=== PATIENT | female | born 1970 | race Caucasian/White ===

== ENCOUNTER 2024-11-04 09:17 | Outpatient (AMB) | payer OTHER, SELFPAY ==
--- NOTE | 2024-11-04 09:24 | A.OFFVIS_ITS ---
Vital Signs 11/04/24 09:28 Height 5 ft 9.13 in Weight 243 lb 6.245 oz BMI 35.8 BP 118/86 Blood Pressure Location Lt brachial Position Sitting Pulse 69 Pulse Source Pulse Oximeter Pulse Oximetry (%) 98 Oxygen Delivery Method Room Air Intake Visit Reasons: OA Intake Note: Patient presents today for osteoarthritis follow up. Accompanied by: Self / Same As Patient Allergies No Known Allergies Allergy (Verified 11/04/24 09:29) HPI HPI OA: Details: She had facial and extremity skin infections on Remicade and it was discontinued. He had a skin biopsy of 1 of the lesions that confirmed an infection. Her eczema is exacerbated. Initially, Remicade improved her hand symptoms but then she reports that later on in the treatment she was not having same benefit. Stiffness is all day in hands. She continues to have pain in hand joints. Pain in feet, especially in the morning. She has heel pain and pain in the front of her foot. She has difficulty walking in the morning. Improves with time. Hydradenitis suppurativa is active in bilateral axilla, underneath the breasts, and groin region. She continues to see Dermatology PROP SETTER Brian. She is having pain right lateral hip. In the past she has had right trochanteric bursa cortisone injection, which lasted at least 3 months. [facility] Medical History (Updated 11/04/24 @ 21:59 by Yazan Davis MD) Osteoarthritis Review of Systems Const All systems reviewed & are unremarkable except as noted in HPI and below Physical Exam Vital Signs: Last Vital Signs Pulse 69 11/04/24 09:28 BP 118/86 11/04/24 09:28 Pulse Ox 98 11/04/24 09:28 Oxygen Delivery Method Room Air 11/04/24 09:28 BMI result Body Mass Index 35.8 Const Other: General: Comfortable CVS: RRR Respiratory: clear to auscultation bilaterally. Good respiratory effort Skin: No lesions seen MSK: Tender to palpate PIP bilaterally. No synovitis. Normal range of motion of upper extremity and lower extremity. Right trochanteric bursa tenderness found. No tenderness at the attachment of plantar aponeurosis at the heel. No MTP tenderness. Results Reviewed Results Reviewed: Labs and [facility] 2021 to 2023. Assessment & Plan Assessment & Plan (1) Inflammatory arthritis: Comment: Associated with hidradenitis suppurativa affecting hands and feet. She continues to experience hand stiffness and pain. No active synovitis on exam. I am ordering labs and x-rays for further investigation of current hand and foot pain. If workup is unremarkable and shows no new radiographic changes associated with inflammatory arthritis, she will need MRI of her right hand to evaluate for subclinical inflammatory arthritis as it will car changer. 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 Can consider next steps in management with Bimekizumab to treat both HS and inflammatory arthritis. Rheumatology history: History of HS for over 20 years. She developed hand, fee t, knee pain, stiffness all day, dactylitis appearance of toes without pain while on Humira (12/2020-02/2021) for HS. Cosentyx 02/2021 improved pain and swelling by 80% but did not have any effect on HS. High dose prednisone prescribed by Dermatology to try to control HS caused agitation, tremors and uncontrolled anxiety. She failed acitretin and Humira for HS. She had enthesitis on exam with medial epicondylitis and bilateral trochanteric bursitis without synovitis. 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 Meloxicam was ineffective. Ibuprofen 600-800 daily or b.i.d. was beneficial. Remicade 09/2023 started to help control polyarthralgia affecting hands and feet and HS with benefit at 7 mg per kg every 6 weeks but was discontinued later due to development of skin infections affecting her face and extremities. HLA B27, anti CCP antibody and rheumatoid factor negative. 05/15/2021 elevated ESR 33 mm/hr and CRP 0.8 mg/dL while on Cosentyx. Code(s): M19.90 - Unspecified osteoarthritis, unspecified site Category: Medical Plan: X-ray hands and feet ordered Labs ordered [facility] reviewed I will consider MRI right hand with and without contrast for further evaluation of subclinical inflammatory arthritis as it will car changer with addition of DMARD therapy Return to clinic in 1-2 months (2) Hidradenitis suppurativa: Comment: Uncontrolled Code(s): L73.2 - Hidradenitis suppurativa Category: Medical Plan: Follows with Dermatology See above (3) Bilateral hand pain: Code(s): M79.641 - Pain in right hand; M79.642 - Pain in left hand Category: Medical Plan: See above (4) Foot pain, bilateral: Comment: She is experiencing heel pain and pain localized to MTPs. X-rays from May 2021 reveal small bilateral calcaneal spurs, which may be contributing to heel pain. Differential diagnosis also includes plantar fasciitis/inflammation localized to the plantar aponeurosis, which also could be part of patient's inflammatory arthritis/spondyloarthritis. Code(s): M79.671 - Pain in right foot; M79.672 - Pain in left foot Category: Medical Plan: Repeat x-rays ordered She agreed to start PT after x-ray results are back Orders: Orders XR hand RT min 3V Today M79.671 - Pain in right foot, M79.672 - Pain in left foot XR foot RT min 3V Today M79.671 - Pain in right foot, M79.672 - Pain in left foot Alanine Aminotransferase Today M79.641 - Pain in right hand, M79.642 - Pain in left hand, M79.671 - Pain in right foot, M79.672 - Pain in left foot Aspartate Amino Transferase Today M79.641 - Pain in right hand, M79.642 - Pain in left hand, M79.671 - Pain in right foot, M79.672 - Pain in left foot Complete Blood Count Auto Diff Today M79.641 - Pain in right hand, M79.642 - Pain in left hand, M79.671 - Pain in right foot, M79.672 - Pain in left foot HLA B27 Today M79.641 - Pain in right hand, M79.642 - Pain in left hand XR hand LT min 3V Today M79.641 - Pain in right hand, M79.642 - Pain in left hand XR foot LT min 3V Today M79.671 - Pain in right foot, M79.672 - Pain in left foot Erythrocyte Sedimentation Rate Today Z79.899 - Other intermodal owner operator truck driver (current) drug therapy C Reactive Protein Today Z79.899 - Other intermodal owner operator truck driver (current) drug therapy Rheumatoid Factor Today M79.641 - Pain in right hand, M79.642 - Pain in left hand Cyclic Citrullinated Peptide Today M79.641 - Pain in right hand, M79.642 - Pain in left hand Coding Level of Care Code Est Pt Level 5 (99512) Diagnoses Inflammatory arthritis M19.90 Hidradenitis suppurativa L73.2 Bilateral hand pain M79.641; M79.642 Foot pain, bilateral M79.671; M79.672 Time Spent (min) 40
[2024-11-04 09:28] VITALS: BP 118/86; PULSE 69; O2SAT 98; BMI 35.8
--- OUTSIDE RECORDS SUMMARY | 2024-11-04 09:42 | XMS_ITS ---
Author Organization [facility] Address [address] [place] [id number] Care Team Providers Care Chocolate Maker Name Role Phone FADUMO ADKINS Primary Care Provider [phone] REASON FOR VISIT Wegovy Approval Medications Medication SIG (Take, Route, Fr equency, Duration) Notes Start Date End Date Status Wegovy 0.25 MG/0.5ML 0.25 mg Subcutaneou s once a week for 30 days Active Encounters Encounter Location Date Provider Diagnosis [facility] [address] [address] 09/21/2024 FADUMO ADKINS Morbid (severe) obesity due to excess calories E66.01 Assessments Encounter Date Diagnosis (ICD Code) Assessment Notes Treatment Notes Treatment Clinical Notes Section Notes 09/21/2024 Morbid (severe) obesity due to excess calories (ICD-10 - E66.01) Plan Of Treatment Medication Medication Name Sig Start Date Stop Date Notes Wegovy 0.25 MG/0.5ML 0.25 mg Subcutaneou s once a week for 30 days Next Appt Details Provider Name:Marycarmen dinh, 11/05/2024 09:30:00 AM, [address] [place] [address], [place], [address], Progress Notes * BHAVIN HENRIQUEZ SDOB:[birth year] (53 yo F)Acc No.[id number]:09/21/2024 Patient:?BHAVIN HENRIQUEZ :1970???Age:53 Y???Sex:Female Address:[facility] [address], [place] [address] * Refills? Refill Wegovy Solution Auto-injector, 0.25 MG/0.5ML, 2 Milliliter, 0.25 mg Subcutaneous once a week, 30 days, Refills=3 * true * Date:? Generated for Rafia gunter/Desiree/Timmysmitting on:?11/04/2024 09:42 AM EDT
--- OUTSIDE RECORDS SUMMARY | 2024-11-04 09:42 | XMS_ITS ---
Author Organization [facility] Address [address] [address] Care Team Providers Care Marina Dry Dock Manager Name Role Phone FADUMO ADKINS Primary Care Provider REASON FOR VISIT David VIDAL Denial Encounters Encounter Location Date Provider Diagnosis [facility] [address] [facility] [address] [place] [address] 08/10/2024 FADUMO ADKINS Plan Of Treatment Next Appt Details Provider Name:Marycarmen dinh, 11/05/2024 09:30:00 AM, [address] [facility] [address], [place], [address], Progress Notes * BHAVIN HENRIQUEZ SDOB:[birth year] (53 yo F)Acc No.[id number]:08/10/2024 Patient:?BHAVIN HENRIQUEZ :1970???Age:53 Y???Sex:Female Address:[place] [address] * true * Date:? Generated for Printi jani/Desiree/eTransmitting on:?11/04/2024 09:41 AM EDT
--- OUTSIDE RECORDS SUMMARY | 2024-11-04 09:42 | XMS_ITS ---
Author Organization [facility] Address [address] [facility] [address] [place] [address] Care Team Providers Care Woven Blind Loom Tender Name Role Phone FADUMO ADKINS Primary Care Provider REASON FOR VISIT Wegovy Appeal Encounters Encounter Location Date Provider Diagnosis [facility] [address] [facility] [address] [place] [address] 09/15/2024 FADUMO ADKINS Plan Of Treatment Next Appt Details Provider Name:Marycarmen dinh, 11/05/2024 09:30:00 AM, [address] [facility] [address], [place], [address], Progress Notes * BHAVIN HENRIQUEZ SDOB:[birth year] (53 yo F)Acc No.[id number]:09/15/2024 Patient:?BHAVIN HENRIQUEZ Laurel :1970???Age:53 Y???Sex:Female Address:[place] [address] * true * Date:? Generated for Printi ng/Famirthag/eTransmitting on:?11/04/2024 09:42 AM EDT
== END 2024-11-04 10:19 | disposition home or self-care (01) ==
LOC: HO.RHES 09:18
PROVIDERS: Visit Provider Internal Medicine Rheumatology
DX: M19.09 Primary osteoarthritis, other specified site (principal); L73.2 Hidradenitis suppurativa; M79.641 Pain in right hand; M79.642 Pain in left hand; M79.671 Pain in right foot; M79.672 Pain in left foot
CPT/HCPCS: 99215

== ENCOUNTER 2024-11-04 09:17 | Outpatient (REF) | payer OTHER, SELFPAY ==
--- OUTSIDE RECORDS SUMMARY | 2024-11-04 11:26 | XMS_ITS | Patient Health Record ---
Author Organization [employer] Address [address] [facility] [address] [place] [address] Care Team Providers Care Professional Engineer Name Role Phone FADUMO ADKINS Primary Care Provider Allergies No Known Allergies Results Component Value Reference Range Notes 25-Hydroxyvitamin D LCMS D2+ [id number] Reviewed date:08/07/2024 11:50:13 AM Interpretation: Performing Lab:[facility], [address] [place] [address], Phone - [phone], Director - Primo Notes/Report: 25-Hydroxy, Vitamin D 23 Reference Range: All Ages: Target levels 30 - 100 25-Hydroxy, Vitamin D-2 2.1 This test was developed and its performance characteristics determined by [facility]. It has not been cleared or approved by the Food and Drug Administration. 25-Hydroxy, Vitamin D-3 21 This test was developed and its performance characteristics determined by [facility]. It has not been cleared or approved by the Food and Drug Administration. Hemoglobin [id number] Reviewed date:08/07/2024 11:50:16 AM Interpretation: Performing Lab:[facility], [facility], Phone - [phone], Director - Primo Notes/Report: Hemoglobin A1c 6.1 4.8-5.6 % . Prediabetes: 5.7 - 6.4 Diabetes: >6.4 Glycemic control for adults with diabetes: <7.0 [id number] Reviewed date:08/07/2024 11:50:18 AM Interpretation: Performing Lab:[facility], [address] [place] [address], Phone - [phone], - Primo Notes/Report: TSH 1.780 0.450-4.500 uIU/mL Lipid Panel-[id number] Reviewed date:08/07/2024 11:50:21 AM Interpretation: Performing Lab:[facility] [place], [address] [facility], [place], Phone - [phone], Director - OHGasper Notes/Report: Cholesterol, Total 156 100-199 mg/dL Triglycerides 141 0-149 mg/dL HDL Cholesterol 38 >39 mg/dL VLDL Cholesterol Bruce 25 5-40 mg/dL LDL Chol Calc ([facility]) 93 0-99 mg/dL Comp. Metabolic Panel (14)-3 Reviewed date:08/07/2024 11:50:09 AM Interpretation: Performing Lab:[facility] [place], [address] [facility], [place], Phone - [phone], Director - Primo Notes/Report: Glucose 112 70-99 mg/dL BUN 15 6-24 mg/dL Creatinine 0.67 0.57-1.00 mg/dL eGFR 103 >59 mL/min/1.73 BUN/Creatinine Ratio 22 9-23 Sodium 139 134-144 mmol/L Potassium 4.6 3.5-5.2 mmol/L Chloride 104 96-106 mmol/L Carbon Dioxide, Total 21 20-29 mmol/L Calcium 9.2 8.7-10.2 mg/dL Protein, Total 7.1 6.0-8.5 g/dL Albumin 4.2 3.8-4.9 g/dL Globulin, Total 2.9 1.5-4.5 g/dL Bilirubin, Total 0.4 0.0-1.2 mg/dL Alkaline Phosphatase 86 44-121 IU/L AST (SGOT) 15 0-40 IU/L ALT (SGPT) 15 0-32 IU/L Reason For Referral No Information Medications Medication SIG (Take, Route, Frequency, Duration) Notes Start Date End Date Status Ibuprofen 800 MG 1 tablet with food o r milk as needed Orally every 8 hrs Active Estradiol 0.0375 MG/24HR 1 patch to skin Transdermal Two times a Week Active Progesterone 100 MG 1 capsule at bedtime Orally Once a day Active Wegovy 0.25 MG/0.5ML 0.25 mg Subcutaneou s once a week for 30 days Active metFORMIN HCl 500 MG 1 tablet with a allison l Orally Twice a day Active Pravastatin Sodium 20 MG TAKE 1 TABLET B Y MOUTH EVERY DAY FOR 30 DAYS for 30 Active Magnesium Active PriLOSEC OTC 20 MG 1 tablet 30 minutes before morning meal Orally Once a day Active Immunizations Vaccine Route Administration Date Status Comme nts COVID 19 Pfizer Unknown 11/23/2020 Administered COVID 19 Pfizer Unknown 12/14/2020 Administered COVID 19 Pfizer Unknown 07/17/2021 Administered COVID Pfizer Unknown 02/23/2022 Administered COVID-19 Pfizer Unknown 05/18/2022 Administered Flublok [id number] IM Intramuscular 07/22/2024 Administered Fluzone QD Unknown 05/18/2022 Administered Influenza, high dose seasonal Unknown 07/19/2021 Administered Shingrix Unknown 08/18/2023 Administered Shingrix Unknown 11/03/2023 Administered Social History Tobacco Use: Social History Observation Description Date Details (start date - stop date) Former Smoker NA - NA Tobacco Use/Smoking Question Answer Notes Are you a former smoker How long has it been since you last smoked? 3-6 months Alcohol Screen (Audit-C) Question Answer Notes Did you have a drink contain ing alcohol in the past year? Yes How often did you have a dri nk containing alcohol in the past year? Monthly or less (1 point) How many drinks did you have on a typical day when you were drinking in the past year? 1 or 2 drinks (0 point) How often did you have 6 or more drinks on one occasion in the past year? Never (0 point) Points 1 Interpretation Negative Tobacco use other than smoking: Question Answer Notes Are you an other tobacco user? s moking since 18 years old 1 ppd Problems Problem Type SNOMED Code ICD Code Onset Dates Problem Status W/U Status Risk Notes Problem Morbid obesity (disorder) (827189478) Morbid (severe) obesity due to excess calories (E66.01) Active confirmed Problem Obesity due to excess calories (425986414) Other obesity due to excess calories (E66.09) Active confirmed Problem Mixed hyperlipidemia (942756570) Mixed hyperlipidemia (E78.2) Active confirmed Problem Mild recurrent major depression (46010293) Major depressive disorder, recurrent, mild (F33.0) Active confirmed Problem Generalized anxiety disorder (43976987) Generalized anxiety disorder (F41.1) Active confirmed Problem Obstructive sleep apnea syndrome (disorder) (28053686) Obstructive sleep apnea (adult) (pediatric) (G47.33) Active confirmed Problem Ulcerative rhinitis (20826506) Nasal mucositis (ulcerative) (J34.81) Active confirmed Problem Gastro-esophageal reflux disease without esophagitis (444951596) Gastro-esophageal reflux disease without esophagitis (K21.9) Active confirmed Problem Constipation (85691732) Constipation, unspecified (K59.00) Active confirmed Problem Abnormal findings on diagnostic imaging of breast (342822533) Other abnormal and inconclusive findings on diagnostic imaging of breast (R92.8) Active confirmed Problem 18714069 Chest pain, unspecified type (R07.9) Active confirmed Vital Signs Heart Rate 87 /min 07/22/2024 Temperature 96.2 degrees Fahrenheit 07/22/2024 Blood pressure diastolic 70 mm Hg 07/22/2024 Oximetry 96 % 07/22/2024 Height 68 in 07/22/2024 Blood pressure systolic 120 mm Hg 07/22/2024 Weight 254.4 lbs 07/22/2024 BMI 38.68 kg/m2 07/22/2024 Encounters Encounter Location Date Provider Diagnosis [address] [place] [address] 07/22/2024 [facility] Annual physical exam Z00.00 ; Obstructive sleep apnea (adult) (pediatric) G47.33 ; Gastro-esophageal reflux disease without esophagitis K21.9 ; Generalized anxiety disorder F41.1 ; Major depressive disorder, recurrent, mild F33.0 ; Morbid (severe) obesity due to excess calories E66.01 ; Dietary counseling and surveillance Z71.3 and Encounter for immunization Z23 [address] [place] [address] 06/22/[address] [place] [address] 06/23/[address] [place] [address] 08/10/[address] [place] [address] 09/15/[address] [place] [address] 09/21/2024 FADUMO ADKINS Morbid (severe) obesity due to excess calories E66.01 Assessments Encounter Date Diagnosis (ICD Code) Assessment Notes Treatment Notes Treatment Clinical Notes Section Notes 07/22/2024 Obstructive sleep apnea (adult) (pediatric) (ICD-10 - G47.33) Bhavin is 53 years old pleasant lady with acid reflux, hyperlipidemia, LAYTON, multiple joint osteoarthritis and she follows up with lute packer or applier, hormone replacement therapy for menopause, HS and eczema and she follows up with field services manager. She is here for a more physical. Plan is as follows. Hyperlipidemia. Continue pravastatin 20 mg daily and recheck a panel. EKG is normal sinus rhythm at 61 beats per night with no acute ST or T wave changes, no bundle branch blocks, normal intervals Obstructive sleep apnea. She is currently on CPAP machine and symptoms are well controlled. Hormone replacement therapy. She follows up with railroad passenger agent and she is stable at this point. But it can give her weight gain which is her primary concern today. Osteoarthritis multiple joints. She was on biologic agents and she was taken off biologic's and currently she is taking NSAIDs and she is also been tapered off prednisone. Acid reflux. Continue Prilosec 20 mg daily and dietary restrictions discussed. VAISHALI/depression. Well controlled and she does not need any medications. Obesity. She is interested in GLP-1. Prescription sent. Advised regular exercise and goal is to lose 6 pounds a month. Screening blood work before next appointment. She is up-to-date on vaccinations. She follows up with ophthalmology on a regular basis 07/22/2024 Annual physical exam (ICD-10 - Z00.00) Bhavin is 53 years old pleasant lady with acid reflux, hyperlipidemia, LAYTON, multiple joint osteoarthritis and she follows up with lute packer or applier, hormone replacement therapy for menopause, HS and eczema and she follows up with field services manager. She is here for a more physical. Plan is as follows. Hyperlipidemia. Continue pravastatin 20 mg daily and recheck a panel. EKG is normal sinus rhythm at 61 beats per night with no acute ST or T wave changes, no bundle branch blocks, normal intervals Obstructive sleep apnea. She is currently on CPAP machine and symptoms are well controlled. Hormone replacement therapy. She follows up with railroad passenger agent and she is stable at this point. But it can give her weight gain which is her primary concern today. Osteoarthritis multiple joints. She was on biologic agents and she was taken off biologic's and currently she is taking NSAIDs and she is also been tapered off prednisone. Acid reflux. Continue Prilosec 20 mg daily and dietary restrictions discussed. VAISHALI/depression. Well controlled and she does not need any medications. Obesity. She is interested in GLP-1. Prescription sent. Advised regular exercise and goal is to lose 6 pounds a month. Screening blood work before next appointment. She is up-to-date on vaccinations. She follows up with ophthalmology on a regular basis 09/21/2024 Morbid (severe) obesity due to excess calories (ICD-10 - E66.01) 07/22/2024 Gastro-esophagea l reflux disease without esophagitis (ICD-10 - K21.9) Bhavin is 53 years old pleasant lady with acid reflux, hyperlipidemia, LAYTON, multiple joint osteoarthritis and she follows up with lute packer or applier, hormone replacement therapy for menopause, HS and eczema and she follows up with field services manager. She is here for a more physical. Plan is as follows. Hyperlipidemia. Continue pravastatin 20 mg daily and recheck a panel. EKG is normal sinus rhythm at 61 beats per night with no acute ST or T wave changes, no bundle branch blocks, normal intervals Obstructive sleep apnea. She is currently on CPAP machine and symptoms are well controlled. Hormone replacement therapy. She follows up with railroad passenger agent and she is stable at this point. But it can give her weight gain which is her primary concern today. Osteoarthritis multiple joints. She was on biologic agents and she was taken off biologic's and currently she is taking NSAIDs and she is also been tapered off prednisone. Acid reflux. Continue Prilosec 20 mg daily and dietary restrictions discussed. VAISHALI/depression. Well controlled and she does not need any medications. Obesity. She is interested in GLP-1. Prescription sent. Advised regular exercise and goal is to lose 6 pounds a month. Screening blood work before next appointment. She is up-to-date on vaccinations. She follows up with ophthalmology on a regular basis 07/22/2024 Generalized anxiety disorder (ICD-10 - F41.1) Bhavin is 53 years old pleasant lady with acid reflux, hyperlipidemia, LAYTON, multiple joint osteoarthritis and she follows up with lute packer or applier, hormone replacement therapy for menopause, HS and eczema and she follows up with field services manager. She is here for a more physical. Plan is as follows. Hyperlipidemia. Continue pravastatin 20 mg daily and recheck a panel. EKG is normal sinus rhythm at 61 beats per night with no acute ST or T wave changes, no bundle branch blocks, normal intervals Obstructive sleep apnea. She is currently on CPAP machine and symptoms are well controlled. Hormone replacement therapy. She follows up with railroad passenger agent and she is stable at this point. But it can give her weight gain which is her primary concern today. Osteoarthritis multiple joints. She was on biologic agents and she was taken off biologic's and currently she is taking NSAIDs and she is also been tapered off prednisone. Acid reflux. Continue Prilosec 20 mg daily and dietary restrictions discussed. VAISHALI/depression. Well controlled and she does not need any medications. Obesity. She is interested in GLP-1. Prescription sent. Advised regular exercise and goal is to lose 6 pounds a month. Screening blood work before next appointment. She is up-to-date on vaccinations. She follows up with ophthalmology on a regular basis 07/22/2024 Major depressive disorder, recurrent, mild (ICD-10 - F33.0) Bhavin is 53 years old pleasant lady with acid reflux, hyperlipidemia, LAYTON, multiple joint osteoarthritis and she follows up with lute packer or applier, hormone replacement therapy for menopause, HS and eczema and she follows up with field services manager. She is here for a more physical. Plan is as follows. Hyperlipidemia. Continue pravastatin 20 mg daily and recheck a panel. EKG is normal sinus rhythm at 61 beats per night with no acute ST or T wave changes, no bundle branch blocks, normal intervals Obstructive sleep apnea. She is currently on CPAP machine and symptoms are well controlled. Hormone replacement therapy. She follows up with railroad passenger agent and she is stable at this point. But it can give her weight gain which is her primary concern today. Osteoarthritis multiple joints. She was on biologic agents and she was taken off biologic's and currently she is taking NSAIDs and she is also been tapered off prednisone. Acid reflux. Continue Prilosec 20 mg daily and dietary restrictions discussed. VAISHALI/depression. Well controlled and she does not need any medications. Obesity. She is interested in GLP-1. Prescription sent. Advised regular exercise and goal is to lose 6 pounds a month. Screening blood work before next appointment. She is up-to-date on vaccinations. She follows up with ophthalmology on a regular basis 07/22/2024 Morbid (severe) obesity due to excess calories (ICD-10 - E66.01) Bhavin is 53 years old pleasant lady with acid reflux, hyperlipidemia, LAYTON, multiple joint osteoarthritis and she follows up with lute packer or applier, hormone replacement therapy for menopause, HS and eczema and she follows up with field services manager. She is here for a more physical. Plan is as follows. Hyperlipidemia. Continue pravastatin 20 mg daily and recheck a panel. EKG is normal sinus rhythm at 61 beats per night with no acute ST or T wave changes, no bundle branch blocks, normal intervals Obstructive sleep apnea. She is currently on CPAP machine and symptoms are well controlled. Hormone replacement therapy. She follows up with railroad passenger agent and she is stable at this point. But it can give her weight gain which is her primary concern today. Osteoarthritis multiple joints. She was on biologic agents and she was taken off biologic's and currently she is taking NSAIDs and she is also been tapered off prednisone. Acid reflux. Continue Prilosec 20 mg daily and dietary restrictions discussed. VAISHALI/depression. Well controlled and she does not need any medications. Obesity. She is interested in GLP-1. Prescription sent. Advised regular exercise and goal is to lose 6 pounds a month. Screening blood work before next appointment. She is up-to-date on vaccinations. She follows up with ophthalmology on a regular basis 07/22/2024 Dietary counseling and surveillance (ICD-10 - Z71.3) Bhavin is 53 years old pleasant lady with acid reflux, hyperlipidemia, LAYTON, multiple joint osteoarthritis and she follows up with lute packer or applier, hormone replacement therapy for menopause, HS and eczema and she follows up with field services manager. She is here for a more physical. Plan is as follows. Hyperlipidemia. Continue pravastatin 20 mg daily and recheck a panel. EKG is normal sinus rhythm at 61 beats per night with no acute ST or T wave changes, no bundle branch blocks, normal intervals Obstructive sleep apnea. She is currently on CPAP machine and symptoms are well controlled. Hormone replacement therapy. She follows up with railroad passenger agent and she is stable at this point. But it can give her weight gain which is her primary concern today. Osteoarthritis multiple joints. She was on biologic agents and she was taken off biologic's and currently she is taking NSAIDs and she is also been tapered off prednisone. Acid reflux. Continue Prilosec 20 mg daily and dietary restrictions discussed. VAISHALI/depression. Well controlled and she does not need any medications. Obesity. She is interested in GLP-1. Prescription sent. Advised regular exercise and goal is to lose 6 pounds a month. Screening blood work before next appointment. She is up-to-date on vaccinations. She follows up with ophthalmology on a regular basis 07/22/2024 Encounter for immunization (ICD-10 - Z23) Bhavin is 53 years old pleasant lady with acid reflux, hyperlipidemia, LAYTON, multiple joint osteoarthritis and she follows up with lute packer or applier, hormone replacement therapy for menopause, HS and eczema and she follows up with field services manager. She is here for a more physical. Plan is as follows. Hyperlipidemia. Continue pravastatin 20 mg daily and recheck a panel. EKG is normal sinus rhythm at 61 beats per night with no acute ST or T wave changes, no bundle branch blocks, normal intervals Obstructive sleep apnea. She is currently on CPAP machine and symptoms are well controlled. Hormone replacement therapy. She follows up with railroad passenger agent and she is stable at this point. But it can give her weight gain which is her primary concern today. Osteoarthritis multiple joints. She was on biologic agents and she was taken off biologic's and currently she is taking NSAIDs and she is also been tapered off prednisone. Acid reflux. Continue Prilosec 20 mg daily and dietary restrictions discussed. VAISHALI/depression. Well controlled and she does not need any medications. Obesity. She is interested in GLP-1. Prescription sent. Advised regular exercise and goal is to lose 6 pounds a month. Screening blood work before next appointment. She is up-to-date on vaccinations. She follows up with ophthalmology on a regular basis Plan Of Treatment Pending Test Test Name Order Date COMPREHENSIVE METABOLIC PANEL 04/22/2022 COMPREHENSIVE METABOLIC PANEL 03/26/2022 HEMOGLOBIN A1C 04/22/2022 HEMOGLOBIN A1C 03/26/2022 LIPID PANEL 12/13/2021 US Soft Tissue Head Neck 11/17/2019 Lipid Panel-[id number] 10/16/2023 Next Appt Details Provider Name:Marycarmen dinh, 11/05/2024 09:30:00 AM, [address] [place] [address], [phone], Insurance Providers Payer Name Payer Address Payer Phone Subscriber Number Group Number Insured Name Patient Relationship to Insured Coverage Start Date Coverage End Date [facility] [address] [place], [place] [phone] [id number] BHAVIN HENRIQUEZ Self - patient is the insured 4 Medical (General) History Medical History History ICD Code acid reflux And small hiatal hernia Sleep apnea Pain left knee joint Class II obesity Colon polyp s/p COVID 19 abnormal mammogram s/o biopsy 2021 impaired fasting glucose hyperlipidemia Hidradenitis suppurativa sees derm and w as started on metformin hemorrhoids Surgical History Surgery Date(Month/Year) Hospitalization History Reason Date(Month/Year)
[2024-11-04 17:38] LABS: MANUAL DIFF FLAG NO
[2024-11-04 17:57] LABS: Rheumatoid Factor < 13.0 IU/mL (<15.0)
[2024-11-04 18:05] LABS: Alanine Aminotransferase 17 U/L (0-31); Aspartate Amino Transferase 22 U/L (5-31); C Reactive Protein 0.61 mg/dL (< or = 0.50)
[2024-11-04 18:18] LABS: Basophils Absolute Auto 0.1 X10*3/uL (0.0-0.2); Basophils Percent Auto 0.8 % (0-2); Eosinophils Absolute Auto 0.4 X10*3/uL (0.0-0.4); Eosinophils Percent Auto 4.7 % (0-4); Hemoglobin 12.7 g/dl (12.0-16.0); Imm Gran Abs Auto 0.02 X10*3/uL (0.00-0.03); Imm Gran Pct Auto 0.2 % (0.0-0.4); Lymphocytes Absolute Auto 2.8 X10*3/uL (1.2-4.9); Lymphocytes Percent Auto 31.9 % (20-40); Mean Corpuscular HGB Conc 31.8 g/dl (31.0-35.0); Mean Corpuscular Hemoglobin 29.1 pg (27.0-33.0); Mean Corpuscular Volume 91.7 fL (80.0-98.0); Mean Platelet Volume 10.3 fL (9.4-12.3); Monocytes Absolute Auto 0.6 X10*3/uL (0.1-1.2); Monocytes Percent Auto 7.3 % (2-11); Neutrophils Absolute Auto 4.8 x10*3/uL (2.0-8.3); Neutrophils Percent Auto 55.1 % (45-73); Platelet Count 336 X10*3/uL (160-400); Red Blood Count 4.36 X10*6/uL (4.20-5.50); Red Cell Distribution Width 13.1 % (11.0-16.0); White Blood Count 8.7 X10*3/uL (4.8-10.8)
[2024-11-04 18:38] LABS: Erythrocyte Sedimentation Rate 20 MM/HR (0-20)
[2024-11-09 06:44] LABS: Cyclic Citrullinated Peptide <16 UNITS
[2024-11-09 23:48] LABS: HLA B27 Negative (Negative)
== END 2024-11-04 09:18 | disposition home or self-care (01) ==
LOC: HO.HKASLDS 09:17
PROVIDERS: Visit Provider Internal Medicine Rheumatology
DX: M79.641 Pain in right hand (principal); M79.642 Pain in left hand; Z79.899 Other long term (current) drug therapy; M79.671 Pain in right foot; M79.672 Pain in left foot
CPT/HCPCS: 36415; 84450; 84460; 85025; 85652; 86140; 86200; 86431; 86812

== ENCOUNTER 2025-07-07 10:04 | Outpatient (AMB) | payer OTHER, SELFPAY ==
--- NOTE | 2025-07-07 10:30 | A.OFFVIS_ITS ---
Vital Signs 07/07/25 10:31 Height 5 ft 9.13 in Weight 214 lb 8.156 oz BMI 31.6 BP 110/80 Blood Pressure Location Lt brachial Position Sitting Pulse 86 Pulse Source Pulse Oximeter Pulse Oximetry (%) 96 Oxygen Delivery Method Room Air Intake Visit Reasons: follow up Intake Note: Patient presents today for osteoarthritis follow up. Accompanied by: Self / Same As Patient Allergies No Known Allergies Allergy (Verified 07/07/25 10:31) Medication List - Last Reconciled 07/07/25 by Yazan Davis MD betamethasone dipropionate 0.05% appl topical cyanocobalamin (vitamin B-12) 1,000 mcg PO DAILY dupilumab (Dupixent) mg subcut ibuprofen (Advil) 200 mg PO Q6H PRN omeprazole 10 mg PO DAILY pravastatin 20 mg PO DAILY tacrolimus 0.1% topical tirzepatide (weight loss) (Zepbound) 7.5 mg subcut QWEEK triamcinolone acetonide 0.1% appl topical BID HPI HPI follow up: Details: Hands are more painful with activity. Foot stiffness is reduced. Dermatology is treating on exzema because it flared. On dupixent. MS hours in hands. HS active axilla bilateral. Using ibuprofen 800mg PRN joint pain She is having pain in hips laterally and groin region radiating to buttocks. She was referred to PT. Last bursa injection lasted many months. [facility] Medical History Osteoarthritis Physical Exam Vital Signs: Last Vital Signs Pulse 86 07/07/25 10:31 BP 110/80 07/07/25 10:31 Pulse Ox 96 07/07/25 10:31 Oxygen Delivery Method Room Air 07/07/25 10:31 BMI result Body Mass Index 31.6 Const Other: General: Comfortable CVS: RRR Respiratory: clear to auscultation bilaterally. Good respiratory effort Skin: No lesions seen MSK: Tender to palpate Left 3rd MCP, 2-3 PIP left hand. No synovitis. Normal range of motion of upper extremity and lower extremity. Bilateral trochanteric bursa tenderness found. Bilateral MTP tenderness Office Procedures AMB Joint Injection/Aspiration Joint Injection/Aspiration Details: Bilateral trochanteric bursa Prep: site was prepped using aseptic technique Injected into each site: 40 mg of, Kenalog, with 1 mL of and 1% plain lidocaine Procedure: informed verbal consent was obtained. The patient tolerated the procedure well. Postprocedure protocol was discussed with patient. Coding - Bilateral Large Joint Procedure code (CPT) selection complete AMB Joint Injection/Aspiration Coding - Large joint Procedure code (CPT) selection complete Office Meds lidocaine (PF) 10 mg/mL (1 %) injection solution Performing Provider: Yazan Davis MD Performing Location: [facility] [place] [facility] Administered by: Yazan Davis MD on 07/07/25 11:46 Dose Route Admin Location Dispensed Lot Number Expiration Date [facility] Certified Nursing Assistant 1 mL Infiltration left hip bursa 2 mL [id number] 04/03/28 30508-018-6 4 [employer] Total Dispensed Waste 2 mL 50 % Kenalog 40 mg/mL suspension for injection Performing Provider: Yazan Davis MD Performing Location: [facility] [place] [facility] Administered by: Yazan Davis MD on 07/07/25 11:46 Dose Route Admin Location Dispensed Lot Number Expiration Date [facility] Certified Nursing Assistant 40 mg intrabursal left hip bursa 1 mL [id number] 01/31/27 [address]- 1 [employer] Total Dispensed Waste 1 mL 0 % lidocaine (PF) 10 mg/mL (1 %) injection solution Performing Provider: Yazan Davis MD Performing Location: [facility] [place] [facility] Administered by: Yazan Davis MD on 07/07/25 11:46 Dose Route Admin Location Dispensed Lot Number Expiration Date [facility] Certified Nursing Assistant 1 mL Infiltration right hip bursa 2 mL [id number] 04/03/28 30915-667- 04 [employer] Total Dispensed Waste 2 mL 50 % Kenalog 40 mg/mL suspension for injection Performing Provider: Yazan Davis MD Performing Location: [facility] [place] [facility] Administered by: Yazan Davis MD on 07/07/25 11:46 Dose Route Admin Location Dispensed Lot Number Expiration Date [facility] Certified Nursing Assistant 40 mg intrabursal right hip bursa 1 mL [id number] 01/31/27 [address] -1 [employer] Total Dispensed Waste 1 mL 0 % Assessment & Plan Assessment & Plan (1) Inflammatory arthritis: Comment: Associated with hidradenitis suppurativa affecting hands and feet. She continues to experience polyarthralgias No active synovitis on exam. I am ordering labs and x-rays for further investigation of current hand and foot pain. I will start celecoxib to treat her symptoms. If workup is unremarkable and shows no new radiographic changes associated with inflammatory arthritis, she will need MRI of her right hand to evaluate for subclinical inflammatory arthritis as it will change control manager. 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 Can consider next steps in management with Bimekizumab to treat both HS and inflammatory arthritis. Rheumatology history: History of HS for over 20 years. She developed hand, feet, knee pain, stiffness all day, dactylitis appearance of toes without pain while on Humira (12/2020-02/2021) for HS. Cosentyx 02/2021 improved pain and swelling by 80% but did not have any effect on HS. High dose prednisone prescribed by Dermatology to try to control HS caused agitation, tremors and uncontrolled anxiety. She failed acitretin and Humira for HS. She had enthesitis on exam with medial epicondylitis and bilateral trochanteric bursitis without synovitis. 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 Meloxicam was ineffective. Ibuprofen 600-800 daily or b.i.d. was beneficial. Remicade 09/2023 started to help control polyar thralgia affecting hands and feet and HS with benefit at 7 mg per kg every 6 weeks but was discontinued later due to development of skin infections affecting her face and extremities. HLA B27, anti CCP antibody and rheumatoid factor negative. 05/15/2021 elevated ESR 33 mm/hr and CRP 0.8 mg/dL while on Cosentyx. Code(s): M19.90 - Unspecified osteoarthritis, unspecified site Category: Medical Plan: X-ray hands and feet ordered Labs ordered start Celebrex 200 mg twice a day Stop ibuprofen I will consider MRI right hand with and without contrast for further evaluation of subclinical inflammatory arthritis as it will change control manager with addition of DMARD therapy Return to clinic in 3 months (2) Hidradenitis suppurativa: Comment: Uncontrolled Code(s): L73.2 - Hidradenitis suppurativa Category: Medical Plan: Follows with Dermatology See above (3) Bilateral hand pain: Code(s): M79.641 - Pain in right hand; M79.642 - Pain in left hand Category: Medical Plan: See above (4) Greater trochanteric bursitis of both hips: Code(s): M70.61 - Trochanteric bursitis, right hip; M70.62 - Trochanteric bursitis, left hip Category: Medical Plan: patient received bilateral trochanteric bursa cortisone injections this visit Return to clinic in 3 months Orders: Orders Erythrocyte Sedimentation Rate 07/07/25 Z79.899 - Other superintendent container terminal (current) drug therapy Aspartate Amino Transferase 07/07/25 M19.90 - Unspecified osteoarthritis, unspecified site Alanine Aminotransferase 07/07/25 M19.90 - Unspecified osteoarthritis, unspecified site C Reactive Protein 07/07/25 Z79.899 - Other snf (current) drug therapy Creatinine 07/07/25 M19.90 - Unspecified osteoarthritis, unspecified site AMB Joint Injection/Aspiration 07/07/25 M70.61 - Trochanteric bursitis, right hip, M70.62 - Trochanteric bursitis, left hip AMB Joint Injection/Aspiration 07/07/25 M70.61 - Trochanteric bursitis, right hip, M70.62 - Trochanteric bursitis, left hip Medications: New celecoxib (Celebrex) Take with food 200 mg PO BID 60 caps 2RF Coding Level of Care Code Est Pt Level 4 (50008) Complex visit Add On G2211 Diagnoses Inflammatory arthritis M19.90 Hidradenitis suppurativa L73.2 Bilateral hand pain M79.641; M79.642 Greater trochanteric bursitis of both hips M70.61; M70.62 CPT Codes Coding - 79808 - Bilateral Large Joint: 52083 - Bilateral Large Joint ([id number]) Coding - 45401 Large joint: 14474 - Large joint ([id number])
[2025-07-07 10:31] VITALS: BP 110/80; PULSE 86; O2SAT 96; BMI 31.6
== END 2025-07-07 11:09 | disposition home or self-care (01) ==
LOC: HO.RHES 10:05
PROVIDERS: Visit Provider Internal Medicine Rheumatology
DX: M70.61 Trochanteric bursitis, right hip (principal); M70.62 Trochanteric bursitis, left hip
CPT/HCPCS: 20610; 99214

== ENCOUNTER 2025-07-07 10:04 | Outpatient (REF) | payer OTHER, SELFPAY ==
[2025-07-07 18:15] LABS: Alanine Aminotransferase 20 U/L (0-31); Aspartate Amino Transferase 24 U/L (5-31); Estimated Glomerular Filt Rate > 60
[2025-07-07 18:47] LABS: Erythrocyte Sedimentation Rate 19 MM/HR (0-20)
== END 2025-07-07 10:05 | disposition home or self-care (01) ==
LOC: HO.HKASLDS 10:04
PROVIDERS: PCP Hospitalist; Visit Provider Internal Medicine Rheumatology
DX: M19.049 Primary osteoarthritis, unspecified hand (principal); M19.079 Primary osteoarthritis, unspecified ankle and foot; Z79.899 Other long term (current) drug therapy
CPT/HCPCS: 20610; 36415; 82565; 84450; 84460; 85652; 86140; J2003; J3301

== ENCOUNTER 2025-07-13 12:44 | Outpatient (REF) | payer OTHER, SELFPAY ==
--- NOTE | ~2025-07-13 | XR_ITS ---
Exam: XR HAND 3 VIEWS BILATERAL, bilateral hand x-rays TECHNIQUE: AP, lateral, and ball-catcher views upper extremity, bilateral hands INDICATION: Stiffness and PIP joint pain COMPARISON: None available. FINDINGS: RIGHT HAND: Joint spaces are preserved. There are no osteophytes. Small cystlike lucencies with sclerotic margins are visible in the radial side of the third metacarpal head on the PA view. No other areas are present that raises concern for revision. LEFT HAND: Minute marginal osteophyte is present on the radial side first IP, MCP and CMC joint of the thumb. There is questionable small marginal erosion involving the ulnar side of the head of the third proximal phalanx on the ball-catcher's view. On the PA view, margins appear sclerotic. No other abnormalities are detected. XR/XR Hand Bilat min 3v IMPRESSION: Right hand: Nonspecific small cystic change involving the radial side of the third metacarpal head. Left hand: Nonspecific marginal erosion or degenerative cystic change involving the ulnar aspect of the third middle phalanx head at the DIP joint. Electronically signed by: Servando Wan MD 07/13/2025 01:49 PM EST
== END 2025-07-13 12:45 | disposition home or self-care (01) ==
LOC: HO.XRAY 12:44
PROVIDERS: PCP Hospitalist; Visit Provider Internal Medicine Rheumatology
DX: M79.642 Pain in left hand (principal); M79.641 Pain in right hand; M79.671 Pain in right foot; M79.672 Pain in left foot
CPT/HCPCS: 73130; 73630

== ENCOUNTER → 2025-07-13 12:47 | Outpatient (BNV) | payer OTHER, SELFPAY | PROVIDERS: PCP Hospitalist; Visit Provider Radiology Diagnostic Radiology | DX: M19.072 Primary osteoarthritis, left ankle and foot (principal) | CPT/HCPCS: 73630 ==